=== PATIENT | male | born 1950 | race Caucasian/White ===

== ENCOUNTER 2018-08-29 07:17 | Emergency (ER) | payer MEDICARE ==
[2018-08-29 08:37] LABS: Bilirubin Negative (Negative); Blood, Urine Small (Negative); Clarity Cloudy (Clear); Glucose, Urine (Dipstick) Negative (Negative); Leukocyte Moderate (Negative); Nitrite Negative (Negative); Protein, Urine (Dipstick) Trace mg/dL (Neg-Trace); Specific Gravity, Urine 1.025 (1.005-1.030); Urobilinogen 0.2 mg/dL (0.2-1.0)
[2018-08-29] MEDS ORDERED: Acetaminophen 500 MG TAB ONE (08:38)
--- NOTE | 2018-08-29 08:44 | RAD ---
CHEST 1 VIEW: HISTORY: Cough. COMPARISON: None. FINDINGS: Heart size is enlarged. No pneumothorax. Mild pulmonary venous congestion. No large effusion. Chronic-appearing lung markings in both lung bases. IMPRESSION: Cardiomegaly and mild pulmonary venous congestion. POS: [facility]
[2018-08-29 08:45] LABS: Bacteria/HPF 1+ HPF (None Seen); Crystals/HPF RARE CA OXALATE HPF (Negative); RBC/HPF 0-3 HPF (0-3); Squamous Epithelial 0-3 HPF (0-3)
[2018-08-29 09:29] LABS: Band 4 % (5-11); CKMB 1.5 ng/mL (0-6.6); Eosinophils 1 % (0-10); Giant Platelets SLIGHT; Hemoglobin 13.3 g/dL (14.0-18.0); Large Platelets MODERATE; Lymphocytes 9 % (21-51); MDiff Complete? YES; Mean Corpuscular HGB CONC 32.7 g/dL (32.0-36.0); Mean Corpuscular Hemoglobin 30.7 pg (27.0-31.0); Mean Corpuscular Volume 93.8 fL (78.0-98.0); Mean Platelet Volume 11.3 fL (7.4-10.4); Monocytes 5 % (0-10); Neutrophil 80 % (42-75); PLT Morphology Comment Appears Adequate; Platelet Count 369 thou/uL (130-400); RBC Distribution Width 13.6 % (11.5-14.5); Reactive Lymphocytes 1 % (0-10); Red Blood Cell (RBC) Count 4.32 mill/uL (4.70-6.10); Troponin I Less than 0.010 ng/mL (< 0.028); White Blood Cell (WBC) Count 13.2 thou/uL (4.8-10.8)
[2018-08-29 09:33] LABS: ALT (SGPT) 11 U/L (8-55); AST (SGOT) 24 U/L (5-34); Albumin 3.7 g/dL (3.4-4.8); Alkaline Phosphatase 101 U/L (40-150); Anion Gap 18 mmol/L (10-20); BUN (Urea Nitrogen) 15 mg/dL (8.4-25.7); Bilirubin, Total 0.3 mg/dL (0.2-1.2); Calc. Creatinine Clearance 0 mL/min (70-130); Calcium 9.3 mg/dL (7.8-10.44); Carbon Dioxide 20 mmol/L (23-31); Chloride 106 mmol/L (98-107); Estimated GFR-MDRD 60; Globulin 3.8 g/dL (2.4-3.5); Glucose 200 mg/dL (80-115); Potassium 4.6 mmol/L (3.5-5.1); Protein, Total 7.5 g/dL (5.8-8.1); Sodium 139 mmol/L (136-145)
[2018-08-29] MEDS ORDERED: cefTRIAXone\\ROCEPHIN 1 GM VIAL ONE (09:50)
== END 2018-08-29 10:55 | disposition short-term general hospital (02) ==
LOC: MADERS 07:17
DX: S30.22XA Contusion of scrotum and testes, initial encounter (principal); R06.02 Shortness of breath; N39.0 Urinary tract infection, site not specified; E66.01 Morbid (severe) obesity due to excess calories; E11.9 Type 2 diabetes mellitus without complications; Z79.4 Long term (current) use of insulin; I10 Essential (primary) hypertension; Z79.899 Other long term (current) drug therapy; W22.8XXA Striking against or struck by other objects, initial encounter
CPT/HCPCS: 36416; 71045; 80053; 81003; 81015; 82553; 83605; 83880; 84484; 85025; 87040; 87077; 87086; 93005; 94760; 96361; 96365; J0696; J7620

== ENCOUNTER 2019-06-21 14:04 | Emergency (ER) | payer MEDICARE ==
[~2019-06-21 14:04] MED LIST: Lidocaine 2% PF 100 mg/5 ml Syringe ONE; Norepinephrine 4 MG/4 ML VIAL ONE; Sodium Chloride 0.9% 1,000 ML BAG ONE; Sodium Chloride 0.9% 100 ML BAG ONE
--- NOTE | 2019-06-21 15:08 | RAD ---
XR Chest 1 View Portable HISTORY: Tremors COMPARISON: 08/29/2018 FINDINGS: The heart size is mildly enlarged but stable. There is mild pulmonary vascular congestion. The lungs are well expanded without focal areas of consolidation, pneumothorax or pleural effusions.
[2019-06-21 15:15] LABS: ALT (SGPT) Less than 7 U/L (8-55); AST (SGOT) 10 U/L (5-34); Albumin 3.1 g/dL (3.4-4.8); Alkaline Phosphatase 111 U/L (40-150); Anion Gap 18 mmol/L (10-20); BUN (Urea Nitrogen) 49 mg/dL (8.4-25.7); Bilirubin, Total 0.4 mg/dL (0.2-1.2); Calc. Creatinine Clearance 0 mL/min (70-130); Calcium 9.6 mg/dL (7.8-10.44); Carbon Dioxide 16 mmol/L (23-31); Chloride 109 mmol/L (98-107); Estimated GFR-MDRD 27; Globulin 4.3 g/dL (2.4-3.5); Glucose 147 mg/dL (80-115); Potassium 4.7 mmol/L (3.5-5.1); Protein, Total 7.4 g/dL (5.8-8.1); Sodium 138 mmol/L (136-145)
[2019-06-21 15:33] LABS: Band 2 % (5-11); Hemoglobin 9.1 g/dL (14.0-18.0); Hypochromia SLIGHT = 6-15 cells (100X) (0-5/hpf); Lymphocytes 2 % (21-51); MDiff Complete? YES; Mean Corpuscular HGB CONC 32.7 g/dL (32.0-36.0); Mean Corpuscular Hemoglobin 29.6 pg (27.0-31.0); Mean Corpuscular Volume 90.6 fL (78.0-98.0); Mean Platelet Volume 9.3 fL (7.4-10.4); Monocytes 2 % (0-10); Myelocyte 1 % (0-0); Neutrophil 93 % (42-75); Platelet Count 435 thou/uL (130-400); Platelet Morphology Comment Appears Increased; RBC Distribution Width 13.2 % (11.5-14.5); Red Blood Cell (RBC) Count 3.09 mill/uL (4.70-6.10); White Blood Cell (WBC) Count 20.2 thou/uL (4.8-10.8)
[2019-06-21] MEDS ORDERED: Cefepime 2 GM VIAL ONE (15:37)
[2019-06-21] MEDS ORDERED: Vancomycin HCl 500 MG VIAL ONE (15:37)
[2019-06-21] MEDS ORDERED: Fentanyl 100 MCG/2 ML VIAL ONE (15:44)
[2019-06-21] MEDS ORDERED: Norepinephrine 4 MG/4 ML VIAL ONE (15:50)
[2019-06-21 16:20] LABS: Bilirubin Large (Negative); Blood, Urine Large (Negative); Glucose, Urine (Dipstick) 100 mg/dL (Negative); Leukocyte Large (Negative); Nitrite Negative (Negative); Protein, Urine (Dipstick) Negative (Neg-Trace); Urobilinogen 0.2 mg/dL (Less than 2)
[2019-06-21 16:21] LABS: Bacteria/HPF 2+ HPF (None Seen); Clarity Cloudy (Clear); RBC/HPF Greater than 50 HPF (0-3); WBC/HPF 21-50 HPF (0-3)
== END 2019-06-21 16:46 | disposition short-term general hospital (02) ==
LOC: MADERS 14:04
DX: A41.9 Sepsis, unspecified organism (principal); N39.0 Urinary tract infection, site not specified; I48.91 Unspecified atrial fibrillation; R00.0 Tachycardia, unspecified; E66.9 Obesity, unspecified; E11.9 Type 2 diabetes mellitus without complications; I10 Essential (primary) hypertension; Z85.46 Personal history of malignant neoplasm of prostate; G47.30 Sleep apnea, unspecified; Z79.899 Other long term (current) drug therapy; Z79.84 Long term (current) use of oral hypoglycemic drugs; Z79.51 Long term (current) use of inhaled steroids; Z79.4 Long term (current) use of insulin
CPT/HCPCS: 36415; 36416; 36680; 71045; 80053; 81003; 81015; 83605; 83880; 84484; 85025; 87040; 87077; 87086; 87149; 87186; 93005; 96361; 96365; 96368; 96375; J0692; J2001; J3010; J3370; J3490; J7050; J7070

== ENCOUNTER 2019-09-19 11:43 | Emergency (ER) | payer MEDICARE ==
[~2019-09-19 11:43] MED LIST changes: +Iopamidol 370 76% 100 ML VIAL ONE; -Lidocaine 2% PF 100 mg/5 ml Syringe ONE; -Norepinephrine 4 MG/4 ML VIAL ONE; -Sodium Chloride 0.9% 1,000 ML BAG ONE; -Sodium Chloride 0.9% 100 ML BAG ONE
[2019-09-19 13:01] LABS: #Basophils 0.1 thou/uL (0.0-0.2); #Eosinphils 0.2 thou/uL (0.0-0.7); #Lymphocytes 0.9 thou/uL (1.20-3.40); #Monocytes 0.7 thou/uL (0.11-0.59); #Neutrophils 7.1 thou/uL (1.40-6.50); %Basophils 0.7 % (0.0-1.0); %Eosinophils 1.8 % (0.0-10.0); %Lymphocytes 10.4 % (21.0-51.0); %Monocytes 7.8 % (0.0-10.0); %Neutrophils 79.3 % (42.0-75.0); Hemoglobin 9.8 g/dL (14.0-18.0); Mean Corpuscular HGB CONC 30.1 g/dL (32.0-36.0); Mean Corpuscular Hemoglobin 27.8 pg (27.0-31.0); Mean Corpuscular Volume 92.5 fL (78.0-98.0); Mean Platelet Volume 10.2 fL (7.4-10.4); Platelet Count 407 thou/uL (130-400); RBC Distribution Width 13.4 % (11.5-14.5); Red Blood Cell (RBC) Count 3.51 mill/uL (4.70-6.10); White Blood Cell (WBC) Count 8.9 thou/uL (4.8-10.8)
[2019-09-19 13:06] LABS: Bilirubin Negative (Negative); Blood, Urine Large (Negative); Clarity Clear (Clear); Glucose, Urine (Dipstick) Negative (Negative); Leukocyte Large (Negative); Nitrite Positive (Negative); Protein, Urine (Dipstick) > or equal to 300 mg/dL (Neg-Trace); Urobilinogen 0.2 mg/dL (Less than 2)
[2019-09-19 13:07] LABS: ALT (SGPT) Less than 7 U/L (8-55); AST (SGOT) 8 U/L (5-34); Albumin 3.4 g/dL (3.4-4.8); Alkaline Phosphatase 134 U/L (40-110); Anion Gap 14 mmol/L (10-20); BUN (Urea Nitrogen) 27 mg/dL (8.4-25.7); Bilirubin, Total 0.2 mg/dL (0.2-1.2); Calc. Creatinine Clearance 0 mL/min (70-130); Calcium 10.4 mg/dL (7.8-10.44); Carbon Dioxide 20 mmol/L (23-31); Chloride 112 mmol/L (98-107); Estimated GFR-MDRD 38; Globulin 3.8 g/dL (2.4-3.5); Glucose 95 mg/dL (80-115); Potassium 4.6 mmol/L (3.5-5.1); Protein, Total 7.2 g/dL (5.8-8.1); Sodium 141 mmol/L (136-145)
[2019-09-19 13:09] LABS: WBC/HPF Greater than 50 HPF (0-3)
[2019-09-19 13:10] LABS: Bacteria/HPF 4+ HPF (None Seen)
--- NOTE | 2019-09-19 17:13 | CT ---
CT ABDOMEN AND PELVIS WITHOUT IV CONTRAST ORAL CONTRAST WAS GIVEN: Indications: Abdominal pain. Comparison: CT pelvis 07-04-19 History: Right hip and groin pain. Open wound to scrotum x three months. Prior CT pelvis showed fluid collection in the anterior abdominal wall musculature of the lower abdomen, consistent with abscess. FINDINGS: The lung bases show chronic change. Liver, spleen, pancreas unremarkable. Post cholecystectomy change. Adrenal glands normal. Kidneys unremarkable. Small bowel loops normal caliber. Colon is unremarkable. Aorta normal caliber. No mass, adenopathy, o r free fluid in the abdomen or pelvis. The urinary bladder is unremarkable. Prostatic seed implants a re noted. The abdominal wall fluid/abscess collection noted previously is no longer present. There is no eviden ce of fluid or abscess. Osseous structures are unremarkable. IMPRESSION: No acute findings. POS: OFF
[2019-09-19] MEDS ORDERED: Lorazepam 2 MG/ML VIAL ONE (17:56)
[2019-09-19] MEDS ORDERED: HYDROcodone/Acetaminophen 10/325 mg Tablet ONE (19:54)
== END 2019-09-19 22:29 | disposition short-term general hospital (02) ==
LOC: MADERS 11:43
DX: N49.2 Inflammatory disorders of scrotum (principal); N45.2 Orchitis; L89.159 Pressure ulcer of sacral region, unspecified stage; E11.9 Type 2 diabetes mellitus without complications; I10 Essential (primary) hypertension; E66.9 Obesity, unspecified; G47.30 Sleep apnea, unspecified; Z79.899 Other long term (current) drug therapy; Z79.4 Long term (current) use of insulin
CPT/HCPCS: 51701; 74177; 80053; 81003; 81015; 83880; 85025; 86140; 87077; 87086; 87186; 94760; 96365; 96375; J1956; J2060; Q9967

== ENCOUNTER 2020-10-06 02:31 | Emergency (ER) | payer MEDICARE ==
[2020-10-06 03:15] LABS: Clarity Cloudy (Clear)
[2020-10-06 03:16] LABS: Leukocyte Large (Negative); Nitrite Positive (Negative); Protein, Urine (Dipstick) Unable to Interpret mg/dL (Neg-Trace); Specific Gravity, Urine 1.015 (1.005-1.030)
[2020-10-06 03:17] LABS: Glucose, Urine (Dipstick) Negative (Negative); Ketone, Urine Unable to Interpret mg/dL (Negative); Urobilinogen UNABLE TO INTERPRET mg/dL (Less than 2)
[2020-10-06 03:18] LABS: Bilirubin Unable to Interpret (Negative)
[2020-10-06 03:19] LABS: Blood, Urine Large (Negative); RBC/HPF 21-50 HPF (0-3); WBC/HPF 21-50 HPF (0-3)
[2020-10-06 03:20] LABS: Bacteria/HPF 2+ HPF (None Seen)
[2020-10-06] MEDS ORDERED: Insulin Regular 300 UNITS/3 ML VIAL ONE (03:35)
== END 2020-10-06 04:55 | disposition home or self-care (01) ==
LOC: MADERS 02:31
DX: N39.0 Urinary tract infection, site not specified (principal); E11.65 Type 2 diabetes mellitus with hyperglycemia; E66.01 Morbid (severe) obesity due to excess calories; I10 Essential (primary) hypertension; G47.30 Sleep apnea, unspecified; Z79.4 Long term (current) use of insulin; Z85.46 Personal history of malignant neoplasm of prostate; Z79.899 Other long term (current) drug therapy
CPT/HCPCS: 36416; 51701; 81003; 81015; J1815

== ENCOUNTER 2020-10-07 03:55 | Emergency (ER) | payer MEDICARE ==
[2020-10-07 04:42] LABS: Bilirubin Negative (Negative); Blood, Urine Large (Negative); Clarity Turbid (Clear); Glucose, Urine (Dipstick) >=1000 mg/dL (Negative); Ketone, Urine Negative (Negative); Leukocyte Trace (Negative); Nitrite Positive (Negative); Protein, Urine (Dipstick) > or equal to 300 mg/dL (Neg-Trace); Urobilinogen 0.2 mg/dL (Less than 2); pH, Urine 5.5 (5.0-9.0)
[2020-10-07 05:10] LABS: RBC/HPF Greater than 50 HPF (0-3); Squamous Epithelial 0-3 HPF (0-3); WBC/HPF Greater than 50 HPF (0-3)
[2020-10-07 05:11] LABS: Bacteria/HPF 2+ HPF (None Seen)
[2020-10-07 05:23] LABS: #Basophils 0.1 thou/uL (0.0-0.2); #Eosinphils 0.2 thou/uL (0.0-0.7); #Lymphocytes 1.3 thou/uL (1.20-3.40); #Monocytes 0.9 thou/uL (0.11-0.59); #Neutrophils 8.4 thou/uL (1.40-6.50); %Basophils 0.7 % (0.0-1.0); %Eosinophils 1.7 % (0.0-10.0); %Lymphocytes 11.7 % (21.0-51.0); %Neutrophils 77.8 % (42.0-75.0); Hemoglobin 11.9 g/dL (14.0-18.0); Mean Corpuscular HGB CONC 32.2 g/dL (32.0-36.0); Mean Corpuscular Hemoglobin 30.1 pg (27.0-31.0); Mean Corpuscular Volume 93.5 fL (78.0-98.0); Mean Platelet Volume 11.6 fL (7.4-10.4); Platelet Count 366 thou/uL (130-400); Red Blood Cell (RBC) Count 3.97 mill/uL (4.70-6.10); White Blood Cell (WBC) Count 10.8 thou/uL (4.8-10.8)
[2020-10-07] MEDS ORDERED: Nitrofurantoin Monohyd/M-Cryst 100 MG CAP ONE (05:28)
[2020-10-07 05:30] LABS: ALT (SGPT) Less than 7 U/L (8-55); AST (SGOT) 8 U/L (5-34); Albumin 3.6 g/dL (3.4-4.8); Alkaline Phosphatase 161 U/L (40-110); Anion Gap 18 mmol/L (10-20); BUN (Urea Nitrogen) 31 mg/dL (8.4-25.7); Bilirubin, Total 0.2 mg/dL (0.2-1.2); Calc. Creatinine Clearance 0 mL/min (70-130); Calcium 9.2 mg/dL (7.8-10.44); Carbon Dioxide 20 mmol/L (23-31); Chloride 98 mmol/L (98-107); Globulin 4.2 g/dL (2.4-3.5); Glucose 477 mg/dL (80-115); Protein, Total 7.8 g/dL (5.8-8.1); Sodium 132 mmol/L (136-145)
[2020-10-07] MEDS ORDERED: Lantus 1000 UNITS/10 ML VIAL SC SCH (08:30)
== END 2020-10-07 05:55 | disposition home or self-care (01) ==
LOC: MADERS 03:55
DX: N30.91 Cystitis, unspecified with hematuria (principal); I12.9 Hypertensive chronic kidney disease with stage 1 through stage 4 chronic kidney disease, or unspecified chronic kidney disease; N18.9 Chronic kidney disease, unspecified; E11.22 Type 2 diabetes mellitus with diabetic chronic kidney disease; Z79.4 Long term (current) use of insulin; E66.9 Obesity, unspecified; G47.30 Sleep apnea, unspecified; Z85.46 Personal history of malignant neoplasm of prostate
CPT/HCPCS: 80053; 81003; 81015; 83605; 85025; 87086; 99283; J1815

== ENCOUNTER 2020-10-08 06:09 | Emergency (ER) | payer MEDICARE ==
[2020-10-08] MEDS ORDERED: Morphine 4 MG/ML VIAL ONE (07:53)
== END 2020-10-08 08:25 | disposition home or self-care (01) ==
LOC: MADERS 06:09
DX: R33.9 Retention of urine, unspecified (principal); E11.9 Type 2 diabetes mellitus without complications; Z79.4 Long term (current) use of insulin; E66.9 Obesity, unspecified; G47.30 Sleep apnea, unspecified; I10 Essential (primary) hypertension; Z79.899 Other long term (current) drug therapy; Z85.46 Personal history of malignant neoplasm of prostate
CPT/HCPCS: 51703; 96372; J2270

== ENCOUNTER 2021-04-08 11:58 | Emergency (ER) | payer MEDICARE ==
[2021-04-08 12:43] LABS: #Basophils 0.1 thou/uL (0.0-0.2); #Eosinphils 0.2 thou/uL (0.0-0.7); #Lymphocytes 1.5 thou/uL (1.20-3.40); #Monocytes 0.8 thou/uL (0.11-0.59); #Neutrophils 7.9 thou/uL (1.40-6.50); %Basophils 0.8 % (0.0-1.0); %Eosinophils 1.8 % (0.0-10.0); %Lymphocytes 14.6 % (21.0-51.0); %Monocytes 7.5 % (0.0-10.0); %Neutrophils 75.2 % (42.0-75.0); Hemoglobin 12.1 g/dL (14.0-18.0); Mean Corpuscular HGB CONC 30.7 g/dL (32.0-36.0); Mean Corpuscular Volume 100.9 fL (78.0-98.0); Mean Platelet Volume 11.1 fL (7.4-10.4); Platelet Count 376 thou/uL (130-400); RBC Distribution Width 14.1 % (11.5-14.5); Red Blood Cell (RBC) Count 3.89 mill/uL (4.70-6.10); White Blood Cell (WBC) Count 10.5 thou/uL (4.8-10.8)
[2021-04-08 12:59] LABS: ALT (SGPT) Less than 7 U/L (8-55); AST (SGOT) 7 U/L (5-34); Albumin 3.1 g/dL (3.4-4.8); Alkaline Phosphatase 127 U/L (40-110); Anion Gap 19 mmol/L (10-20); BUN (Urea Nitrogen) 16 mg/dL (8.4-25.7); Bilirubin, Total 0.4 mg/dL (0.2-1.2); CK (CPK) 23 U/L (30-200); Calc. Creatinine Clearance 0 mL/min (70-130); Calcium 8.7 mg/dL (7.8-10.44); Carbon Dioxide 20 mmol/L (23-31); Chloride 99 mmol/L (98-107); Glucose 366 mg/dL (83-110); Potassium 4.1 mmol/L (3.5-5.1); Protein, Total 7.1 g/dL (5.8-8.1); Sodium 134 mmol/L (136-145)
[2021-04-08 14:25] LABS: Bilirubin Negative (Negative); Blood, Urine Large (Negative); Glucose, Urine (Dipstick) 500 mg/dL (Negative); Ketone, Urine 15 mg/dL (Negative); Leukocyte Small (Negative); Nitrite Positive (Negative); Protein, Urine (Dipstick) > or equal to 300 mg/dL (Neg-Trace); Specific Gravity, Urine 1.025 (1.005-1.030); Urobilinogen 0.2 mg/dL (Less than 2)
[2021-04-08 14:26] LABS: Clarity Cloudy (Clear)
[2021-04-08 14:41] LABS: Amphetamine Not Detected (NotDetected); Barbiturates Screen Not Detected (NotDetected); Benzodiazepine Screen Not Detected (NotDetected); Cocaine Metabolite Screen Not Detected (NotDetected); Medtox Control Line Valid? VALID (VALID); Methadone Not Detected (NotDetected); Methamphetamine Not Detected (NotDetected); Opiate Screen Not Detected (NotDetected); Oxycodone Screen Not Detected (NotDetected); Phencyclidine (PCP) Not Detected (NotDetected); THC/Cannabinoid Screen Not Detected (NotDetected); Tricyclic Screen Not Detected (NotDetected)
[2021-04-08 14:44] LABS: Mucous/LPF 1+ LPF (<2+); WBC/HPF Greater Than 50 HPF (0-3)
[2021-04-08 14:45] LABS: Bacteria/HPF 1+ HPF (None Seen)
[2021-04-08] MEDS ORDERED: cefTRIAXone\\ROCEPHIN 1 GM VIAL ONE (14:53)
[2021-04-08] MEDS ORDERED: Lidocaine 1% 20 ML MDV ONE (14:53)
== END 2021-04-08 15:30 | disposition home or self-care (01) ==
LOC: MADERS 11:58
DX: N39.0 Urinary tract infection, site not specified (principal); E11.65 Type 2 diabetes mellitus with hyperglycemia; Z79.4 Long term (current) use of insulin; R60.0 Localized edema; R53.1 Weakness; R63.0 Anorexia; I10 Essential (primary) hypertension; G47.30 Sleep apnea, unspecified; E66.9 Obesity, unspecified; Z85.46 Personal history of malignant neoplasm of prostate
CPT/HCPCS: 36415; 71045; 80053; 80306; 81003; 81015; 82550; 85025; 96372; J0696

== ENCOUNTER 2021-04-11 12:22 | Emergency (ER) | payer MEDICARE ==
[2021-04-11 13:35] LABS: #Basophils 0.1 thou/uL (0.0-0.2); #Eosinphils 0.2 thou/uL (0.0-0.7); #Lymphocytes 1.7 thou/uL (1.20-3.40); #Monocytes 0.5 thou/uL (0.11-0.59); #Neutrophils 6.6 thou/uL (1.40-6.50); %Basophils 0.9 % (0.0-1.0); %Eosinophils 2.6 % (0.0-10.0); %Lymphocytes 18.7 % (21.0-51.0); %Monocytes 5.6 % (0.0-10.0); %Neutrophils 72.2 % (42.0-75.0); Hemoglobin 11.9 g/dL (14.0-18.0); Mean Corpuscular HGB CONC 30.9 g/dL (32.0-36.0); Mean Corpuscular Hemoglobin 31.2 pg (27.0-31.0); Mean Corpuscular Volume 100.9 fL (78.0-98.0); Mean Platelet Volume 10.9 fL (7.4-10.4); Platelet Count 411 thou/uL (130-400); RBC Distribution Width 13.9 % (11.5-14.5); Red Blood Cell (RBC) Count 3.81 mill/uL (4.70-6.10); White Blood Cell (WBC) Count 9.2 thou/uL (4.8-10.8)
[2021-04-11 13:47] LABS: ALT (SGPT) 7 U/L (8-55); AST (SGOT) 11 U/L (5-34); Alkaline Phosphatase 114 U/L (40-110); Anion Gap 12 mmol/L (10-20); BUN (Urea Nitrogen) 12 mg/dL (8.4-25.7); Bilirubin, Total 0.3 mg/dL (0.2-1.2); Calc. Creatinine Clearance 0 mL/min (70-130); Calcium 8.8 mg/dL (7.8-10.44); Carbon Dioxide 26 mmol/L (23-31); Chloride 102 mmol/L (98-107); Glucose 352 mg/dL (83-110); Lipase 16 U/L (8-78); Potassium 3.9 mmol/L (3.5-5.1); Sodium 136 mmol/L (136-145)
[2021-04-11 16:17] LABS: Bilirubin Negative (Negative); Blood, Urine Large (Negative); Clarity Slightly Cloudy (Clear); Glucose, Urine (Dipstick) >=1000 mg/dL (Negative); Ketone, Urine Negative (Negative); Leukocyte Small (Negative); Nitrite Positive (Negative); Protein, Urine (Dipstick) > or equal to 300 mg/dL (Neg-Trace); Specific Gravity, Urine 1.025 (1.005-1.030); Urobilinogen 0.2 mg/dL (Less than 2); pH, Urine 5.5 (5.0-9.0)
[2021-04-11 16:24] LABS: Bacteria/HPF 3+ HPF (None Seen); RBC/HPF Greater than 50 HPF (0-3); Squamous Epithelial None Seen HPF (0-3); WBC/HPF Greater Than 50 HPF (0-3)
[2021-04-11] MEDS ORDERED: cefTRIAXone\\ROCEPHIN 2 GM VIAL ONE (16:44)
[2021-04-11] MEDS ORDERED: Sodium Chloride 0.9% 100 ML ONE (16:44)
[2021-04-11] MEDS ORDERED: Acetaminophen/Codeine 30-300mg Tablet ONE (19:36)
[2021-04-12] MEDS ORDERED: HYDROcodone/Acetaminophen 10/325 mg Tablet ONE (11:06)
== END 2021-04-12 17:10 | disposition short-term general hospital (02) ==
LOC: MADERS 12:22
DX: N30.00 Acute cystitis without hematuria (principal); Z73.6 Limitation of activities due to disability; R60.0 Localized edema; E11.9 Type 2 diabetes mellitus without complications; Z79.4 Long term (current) use of insulin; I10 Essential (primary) hypertension; E66.9 Obesity, unspecified; G47.00 Insomnia, unspecified; Z85.46 Personal history of malignant neoplasm of prostate
CPT/HCPCS: 70450; 71045; 80053; 81003; 81015; 83690; 84484; 85025; 93005; 96365; J0696; J3490